=== PATIENT | male | born 1990 | race Caucasian/White ===

== ENCOUNTER 2016-07-28 16:56 | Emergency (ER) | payer SELFPAY ==
[2016-07-28 17:32] VITALS: BP 130/73
--- NOTE | 2016-07-28 17:59 | ER Document Report ---
ED Medical Screen (RME) - General Stated Complaint: LEFT THUMB LACERATION Notes: cut his finger on a razor blade today not sure of his last tetanus no sign of bleeding, thru epidermis I have greeted and performed a rapid initial assessment of this patient. A comprehensive ED assessment and evaluation of the patient, analysis of test results and completion of the medical decision making process will be conducted by additional ED providers. TRAVEL OUTSIDE OF THE [place] IN LAST 30 DAYS: No - Related Data Allergies/Adverse Reactions: No Known Allergies Allergy (Verified 07/28/16 17:57) Past Medical History Renal/ Medical History: Reports: Hx Kidney Stones Musculoskeltal Medical History: Reports Hx Musculoskeletal Deformity, Reports Hx Musculoskeletal Trauma Psychiatric Medical History: Reports: Hx Depression Past Surgical History: Reports: Hx Adenoidectomy - Immunizations Hx Diphtheria, Pertussis, Tetanus Vaccination: Yes - within 2 years Physical Exam - Vital signs Vitals: Temp Pulse Resp BP Pulse Ox 98.5 F 78 18 130/73 H 98 07/28/16 17:31 07/28/16 17:31 07/28/16 17:31 07/28/16 17:31 07/28/16 17:31 Course - Vital Signs Vital signs: Temp Pulse Resp BP Pulse Ox 98.5 F 78 18 130/73 H 98 07/28/16 17:31 07/28/16 17:31 07/28/16 17:31 07/28/16 17:31 07/28/16 17:31
[2016-07-28] MEDS ORDERED: DIPH/PERTUSS(ACELL)/TETANUS VAC/PF 0.5 ML SYR (>=10YO) IM ONE (18:00)
== END 2016-07-28 20:00 | disposition left against medical advice (07) ==
LOC: ER 16:56
DX: S61.012A Laceration without foreign body of left thumb without damage to nail, initial encounter (principal); X58.XXXA Exposure to other specified factors, initial encounter; Z53.20 Procedure and treatment not carried out because of patient's decision for unspecified reasons
CPT/HCPCS: 99281

== ENCOUNTER 2016-10-29 18:39 | Emergency (ER) | payer OTHER ==
[2016-10-29] MEDS ORDERED: PREDNISONE 20 MG TABLET PO ONE (20:25)
[2016-10-29] MEDS ORDERED: HYDROCODONE/ACETAMINOPHEN 5-325 MG 6 TAB/DSPK PO PRN (20:25)
--- NOTE | 2016-10-29 20:30 | ER Document Report ---
HPI - HPI Patient complains to provider of: lumbar back pain, right thigh pain Pain Level: 3 Context: Patient is a 26-year-old male that comes emergency department for chief complaint of pain in the bilateral lower part of his back with soreness, States his pain in his right thigh area and down his leg towards his knee. 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 He denies any focal numbness or weakness, bowel or bladder changes, denies history of IV drug abuse, denies fever. He reports history of similar symptoms. - DERM Skin Color: Normal Past Medical History - General Information source: Patient - Social History Smoking Status: Never Smoker Frequency of alcohol use: None Drug Abuse: None Lives with: Family Family History: Reviewed & Not Pertinent, Arthritis, Malignancy Renal/ Medical History: Reports: Hx Kidney Stones. Denies: Hx Peritoneal Dialysis Musculoskeltal Medical History: Reports Hx Musculoskeletal Deformity, Reports Hx Musculoskeletal Trauma Psychiatric Medical History: Reports: Hx Depression Past Surgical History: Reports: Hx Adenoidectomy - Immunizations Hx Diphtheria, Pertussis, Tetanus Vaccination: Yes - within 2 years Vertical Provider Document - CONSTITUTIONAL General Appearance: WD/WN, Thin - INFECTION CONTROL TRAVEL OUTSIDE OF THE [place] IN LAST 30 DAYS: No - HEENT HEENT: Atraumatic, Normocephalic - NECK Neck: Normal Inspection - RESPIRATORY Respiratory: Breath Sounds Normal, No Respiratory Distress O2 Sat by Pulse Oximetry: 99 - CARDIOVASCULAR Cardiovascular: Regular Rate, Regular Rhythm - GI/ABDOMEN Gastrointestinal: Abdomen Soft, Abdomen Non-Tender - BACK Back: negative: Normal Inspection - Tender in the bilateral lower paralumbar musculature, no midline tenderness, no saddle anesthesia, normal upper and lower extremity range of motion, normal distal neurovascular exam - NEURO Level of Consciousness: Awake, Alert, Appropriate Motor/Sensory: No Motor Deficit, No Sensory Deficit Course - Re-evaluation Re-evalutation: Patient with tenderness in the bilateral lower lumbar musculature, no midline tenderness, no concerning deficits, negative straight leg raise, also has some anterior thigh tenderness but normal range of motion. Treating symptomatically for lower back pain, 5 pain, muscular symptoms. Discussed follow-up and return precautions. Patient states understanding and agreement. - Vital Signs Vital signs: Temp Pulse Resp BP Pulse Ox 98.1 F 76 18 122/71 99 10/29/16 18:43 10/29/16 18:43 10/29/16 18:43 10/29/16 18:43 10/29/16 18:43 Discharge - Discharge Clinical Impression: Right thigh pain Lower back pain Qualifiers: Chronicity: acute Back pain laterality: bilateral Sciatica presence: without sciatica Qualified Code(s): M54.5 - Low back pain Condition: Stable Disposition: HOME, SELF-CARE Additional Instructions: Examination is consistent with muscular strain of the lower back and thigh muscles. Take the prednisone and muscle relaxer as prescribed, take pptx-[id number] pain medications such as Tylenol as well, apply heat to the areas, and rest. Follow-up with primary care. Return to the emergency department for any concerning or worsening symptoms including numbness, loss of bowel or bladder control, severe pain, fever, etc. Prescriptions: Methocarbamol [Robaxin 750 mg Tablet] 750 mg PO Q6 #20 tablet Prednisone [Deltasone 10 mg Tablet] 10 mg PO ASDIR PRN #21 tablet PRN Reason: Forms: Return to Work
[2016-10-29 22:05] VITALS: BP 138/87
== END 2016-10-29 20:45 | disposition home or self-care (01) ==
LOC: ER 18:39
DX: M54.5 Low back pain (principal); M79.651 Pain in right thigh
CPT/HCPCS: 99283; J7512

== ENCOUNTER 2017-04-29 10:13 | Emergency (ER) | payer OTHER ==
[2017-04-29 10:19] VITALS: BP 127/80
[2017-04-29] MEDS ORDERED: KETOROLAC TROMETHAMINE INJ/PF 30 MG/1 ML SDV IM ONE (10:38)
[2017-04-29] MEDS ORDERED: LIDOCAINE 5% (700 MG) TRANSDERMAL ADH..PATCH TP ONE (10:38)
[2017-04-29] MEDS ORDERED: DEXAMETHASONE SOD PHOS INJ 10 MG/1 ML VIAL IM ONE (10:38)
--- NOTE | 2017-04-29 10:44 | ER Document Report ---
HPI - HPI Pain Level: 3 Notes: Patient is a 26-year-old male who presents the ED with acute on chronic back pain status post injury while at work. Patient states that he was lifting up a car door by himself and used improper technique. Patient states that he felt pain in his left lower back. Patient states that the pain does not radiate and is described as a throbbing and tight pain. Patient denies any recent procedures or surgeries to his lower back. He denies any significant medical history. Denies any drug allergies. Denies any previous history of spinal abscess or recent bacterial infection. Patient is still able to ambulate without any difficulties, and plans to go back to work today. Denies any headache, fever, neck pain, URI, sore throat, chest pain, palpitations, syncope , cough, shortness of breath, wheeze, dyspnea, abdominal pain, nausea/vomiting/ diarrhea, urinary retention, dysuria, hematuria, loss of control of bowel or bladder, numbness/tingling, saddle anesthesia, muscle paralysis/weakness, or rash. Patient denies any IV drug use, but does admit to smoking cigarettes. Patient states that he is trying to quit. - ROS Notes: REVIEW OF SYSTEMS: CONSTITUTIONAL : Denies fever, chills, or sweats. Denies recent illness. EENT: Denies eye, ear, throat, or mouth pain or symptoms. Denies nasal or sinus congestion or discharge. Denies throat, tongue, or mouth swelling or difficulty swallowing. CARDIOVASCULAR: Denies chest pain. Denies palpitations or racing or irregular heart beat. Denies ankle edema. RESPIRATORY: Denies cough, cold, or chest congestion. Denies shortness of breath, difficulty breathing, or wheezing. GASTROINTESTINAL: Denies abdominal pain or distention. Denies nausea, vomiting , or diarrhea. Denies blood in vomitus, stools, or per rectum. Denies black, tarry stools. Denies constipation. GENITOURINARY: Denies difficulty urinating, painful urination, burning, frequency, blood in urine, or discharge. MUSCULOSKELETAL: see hpi SKIN: Denies rash, lesions or sores. NEUROLOGICAL: Denies confusion or altered mental status. Denies passing out or loss of consciousness. Denies dizziness or lightheadedness. Denies headache. Denies weakness or paralysis or loss of use of either side. Denies problems with gait or speech. Denies sensory loss, numbness, or tingling. ALL OTHER SYSTEMS REVIEWED AND NEGATIVE. Dictation was performed using [employer] voice recognition software - DERM Skin Color: Normal Past Medical History - Social History Smoking Status: Current Some Day Smoker Chew tobacco use (# tins/day): No Frequency of alcohol use: None Drug Abuse: None Family History: Reviewed & Not Pertinent, Arthritis, Malignancy Patient has suicidal ideation: No Patient has homicidal ideation: No Renal/ Medical History: Reports: Hx Kidney Stones. Denies: Hx Peritoneal Dialysis Musculoskeltal Medical History: Reports Hx Musculoskeletal Deformity, Reports Hx Musculoskeletal Trauma Psychiatric Medical History: Reports: Hx Depression Past Surgical History: Reports: Hx Adenoidectomy - Immunizations Hx Diphtheria, Pertussis, Tetanus Vaccination: Yes - within 2 years Vertical Provider Document - CONSTITUTIONAL Agree With Documented VS: Yes Notes: PHYSICAL EXAMINATION: GENERAL: Well-appearing, well-nourished and in no acute distress. LUNGS: Breath sounds clear to auscultation bilaterally and equal. No wheezes rales or rhonchi. HEART: Regular rate and rhythm without murmurs, rubs, gallops. ABDOMEN: Soft, nontender, nondistended abdomen. No guarding, no rebound. No masses appreciated. Normal bowel sounds present. No CVA tenderness bilaterally. No pulsatile mass. Musculoskeletal: LE's b/l: FROM to passive/active. Strength 5+/5. No deficits noted. No bony tenderness of extremities. Back: FROM to passive/active. Strength 5+/5. No vertebral point tenderness, stepoffs, or deformities. No other bony tenderness or ecchymosis. SLR negative b/l. + mild tenderness to the left L-paraspinal mm with mild spasming. Extremities: No cyanosis, clubbing, or edema b/l. Peripheral pulses 2+. Capillary refill less than 2 seconds. NEUROLOGICAL: Normal speech, ataxic gait. Normal sensory, motor exams. Reflexes 2+ b/l. PSYCH: Normal mood, normal affect. SKIN: Warm, Dry, normal turgor, no rashes or lesions noted. - INFECTION CONTROL TRAVEL OUTSIDE OF THE [place] IN LAST 30 DAYS: No - RESPIRATORY O2 Sat by Pulse Oximetry: 100 Course - Re-evaluation Re-evalutation: 04/29/17 10:42 Patient is an afebrile, well-hydrated, 26-year-old male who presents the ED with a left lower back strain. Vitals are stable. PE is otherwise unremarkable for any focal neurological deficits. No imaging warranted today based on H&P. Low suspicion for any meningitis, fracture, expanding/ruptured AAA, cauda equina syndrome, epidural mass lesion/abscess, herniated disc causing severe spinal stenosis, or other systemic infection at this time. Patient is aware that his condition can change from initial presentation and that he needs monitor symptoms closely for any acute changes. Decadron 10 mg given IM today along with Toradol 30 mg IM. Lidoderm patch applied today. I will send him home with a prescription for baclofen. Patient declined p.o. NSAIDs, and desired narcotics. I explained that narcotics are not warranted for his condition at this time and that he cannot work on the narcotics anyway. Recheck with your PCM in 3-5 days. Consider consult with orthopedics and physical therapy. Return to the ED with any worsening/concerning symptoms otherwise as reviewed in discharge. Patient is in agreement. - Vital Signs Vital signs: Temp Pulse Resp BP Pulse Ox 97.8 F 92 20 127/80 H 100 04/29/17 10:18 04/29/17 10:18 04/29/17 10:18 04/29/17 10:18 04/29/17 10:18 Discharge - Discharge Clinical Impression: Low back strain Qualifiers: Encounter type: initial encounter Qualified Code(s): S39.012A - Strain of muscle, fascia and tendon of lower back, initial encounter Condition: Stable Disposition: HOME, SELF-CARE Instructions: Ice Packs ([facility]), Low Back Pain ([facility]), Muscle Strain ([facility]), Warm Packs ([facility]), Stretching Exercises for the Back ([facility]) Additional Instructions: Rest, Ice Tylenol/ibuprofen as needed Light stretches daily Strength exercises as able Moist heat and massage may help F/u with your PCP in 3-5 days for a recheck Consider consult(s) with Orthopedics/physical therapy for ongoing/worsening symptoms Return to the ED with any worsening symptoms and/or development of fever, headache, chest pain, palpitations, syncope, shortness of breath, trouble breathing, abdominal pain, n/v/d, blood in stool/urine, loss of control of bowel /bladder, urinary retention, muscle weakness/paralysis, saddle anesthesia, numbness/tingling, or other worsening symptoms that are concerning to you. Prescriptions: Baclofen [Baclofen 10 mg Tablet] 5 mg PO BID PRN #10 tablet PRN Reason: Forms: Elevated Blood Pressure, Smoking Cessation Education, Return to Work Referrals: [facility] [Provider Group] - Follow up as needed
== END 2017-04-29 11:24 | disposition home or self-care (01) ==
LOC: ER 10:13
DX: S39.012A Strain of muscle, fascia and tendon of lower back, initial encounter (principal); X50.0XXA Overexertion from strenuous movement or load, initial encounter; Y99.0 Civilian activity done for income or pay; G89.29 Other chronic pain; F17.200 Nicotine dependence, unspecified, uncomplicated
CPT/HCPCS: 99283; 96372; J1885; J1100

== ENCOUNTER 2017-11-18 13:37 | Emergency (ER) | payer BC, OTHER ==
[2017-11-18] MEDS ORDERED: KETOROLAC TROMETHAMINE INJ/PF 30 MG/1 ML SDV IV ONE (14:17)
[2017-11-18] MEDS ORDERED: METOCLOPRAMIDE HCL INJ/PF 10 MG/2 ML SDV IV ONE (14:17)
--- NOTE | 2017-11-18 14:17 | ER Document Report ---
ED Medical Screen (RME) - General Chief Complaint: Flank Pain Stated Complaint: VOMITING, SIDE PAIN Time Seen by Provider: 11/18/17 14:13 Mode of Arrival: Ambulatory Information source: Patient Notes: 27-year-old male history one previous kidney stone 4 years ago presents with complaints of left flank pain nausea vomiting that came on all of a sudden today I have greeted and performed a rapid initial assessment of this patient. A comprehensive ED assessment and evaluation of the patient, analysis of test results and completion of the medical decision making process will be conducted by additional ED providers. PHYSICAL EXAMINATION: GENERAL: Well-appearing, well-nourished and in moderate distress. HEAD: Atraumatic, normocephalic. EYES: Pupils equal round extraocular movements intact, conjunctiva are normal. ENT: Nares patent NECK: Normal range of motion LUNGS: No respiratory distress Musculoskeletal: Normal range of motion NEUROLOGICAL: Normal speech, normal gait. PSYCH: Normal mood, normal affect. SKIN: Warm, Dry, normal turgor, no rashes or lesions noted. TRAVEL OUTSIDE OF THE [place] IN LAST 30 DAYS: No - Related Data Allergies/Adverse Reactions: No Known Allergies Allergy (Verified 04/29/17 10:18) Past Medical History - Social History Chew tobacco use (# tins/day): No Frequency of alcohol use: None Drug Abuse: None Renal/ Medical History: Reports: Hx Kidney Stones. Denies: Hx Peritoneal Dialysis Musculoskeltal Medical History: Reports Hx Musculoskeletal Deformity, Reports Hx Musculoskeletal Trauma Psychiatric Medical History: Reports: Hx Depression Past Surgical History: Reports: Hx Adenoidectomy - Immunizations Hx Diphtheria, Pertussis, Tetanus Vaccination: Yes - within 2 years Physical Exam - Vital signs Vitals: Pulse Resp BP Pulse Ox 93 16 140/80 H 100 11/18/17 13:59 11/18/17 13:59 11/18/17 13:59 11/18/17 13:59 Course - Vital Signs Vital signs: Temp Pulse Resp BP Pulse Ox 93 16 140/80 H 100 11/18/17 13:59 11/18/17 13:59 11/18/17 13:59 11/18/17 13:59 Doctor's Discharge - Discharge Referrals: NEFTALI PACHECO MD [Primary Care Provider] - Follow up as needed
[2017-11-18] MEDS ORDERED: ONDANSETRON 4 MG TAB.RAPDIS PO ONE (14:50)
[2017-11-18] MEDS ORDERED: KETOROLAC TROMETHAMINE 60 MG/2 ML SDV IM ONE ×2 (14:50→15:34)
[2017-11-18 15:35] LABS: APPEARANCE,URINE SLIGHTLY-CLOUDY; BILIRUBIN,URINE NEGATIVE (NEGATIVE); COLOR,URINE YELLOW; GLUCOSE, URINE NEGATIVE (NEGATIVE); KETONES,URINE TRACE mg/dL (NEGATIVE); LEUKOCYTE ESTERASE,URINE NEGATIVE (NEGATIVE); NITRITE,URINE NEGATIVE (NEGATIVE); PROTEIN,URINE 30 mg/dL (NEGATIVE); URINE SPECIFIC GRAVITY 1.031
--- NOTE | 2017-11-18 15:37 | ER Document Report ---
ED General - General Chief Complaint: Flank Pain Stated Complaint: VOMITING, SIDE PAIN Time Seen by Provider: 11/18/17 14:13 Mode of Arrival: Ambulatory Information source: Patient, [facility] Records Notes: 27-year-old male with previous renal stones presents with complaint of left flank and left lower quadrant pain that started 1 day prior to arrival. Patient states left flank pain initially was aching, dull but worsened this morning. Patient's now experiencing left lower quadrant fullness. Patient has had associated nausea, vomiting. He denies any blood in his emesis. He denies fever, chills, chest pain, shortness of breath. He denies any recent illnesses. The last time the patient had a kidney stone was 4 years ago. He was able to pass the stone by himself at that time. Patient denies any injury to the back. TRAVEL OUTSIDE OF THE [place] IN LAST 30 DAYS: No - HPI Onset: Yesterday Onset/Duration: Gradual, Persistent, Worse Quality of pain: Dull, Fullness Severity: Moderate Associated symptoms: Nausea, Vomiting. denies: Chest pain, Fever, Shortness of breath Exacerbated by: Walking Relieved by: Denies Similar symptoms previously: Yes Recently seen / treated by doctor: No - Related Data Allergies/Adverse Reactions: No Known Allergies Allergy (Verified 04/29/17 10:18) Past Medical History - General Information source: Patient - Social History Smoking Status: Current Every Day Smoker Chew tobacco use (# tins/day): No Frequency of alcohol use: None Drug Abuse: None Lives with: Alone Family History: Reviewed & Not Pertinent, Arthritis, Malignancy Patient has suicidal ideation: No Patient has homicidal ideation: No Renal/ Medical History: Reports: Hx Kidney Stones. Denies: Hx Peritoneal Dialysis Musculoskeltal Medical History: Reports Hx Musculoskeletal Deformity, Reports Hx Musculoskeletal Trauma Psychiatric Medical History: Reports: Hx Depression Past Surgical History: Reports: Hx Adenoidectomy - Immunizations Hx Diphtheria, Pertussis, Tetanus Vaccination: Yes - within 2 years Review of Systems - Review of Systems Notes: REVIEW OF SYSTEMS: CONSTITUTIONAL : Denies fever, chills, or sweats. Denies recent illness. Denies weight loss, recent hospitalizations. EENT: Denies visula changes, eye pain. Denies nasal or sinus congestion or discharge. Denies sore throat, oral lesions, difficulty swallowing. CARDIOVASCULAR: Denies chest pain. Denies palpitations or racing or irregular heart beat. Denies lower extremity edema. RESPIRATORY: Denies cough, cold, or chest congestion. Denies shortness of breath, difficulty breathing, or wheezing. GASTROINTESTINAL: Denies abdominal distention. Denies diarrhea. Denies blood in vomitus, stools, or per rectum. Denies black, tarry stools. Denies constipation. GENITOURINARY: Denies difficulty urinating, painful urination, burning, frequency, blood in urine, or vaginal discharge. MUSCULOSKELETAL: Denies back or neck pain or stiffness. Denies joint pain or swelling. SKIN: Denies rash, lesions or sores. HEMATOLOGIC : Denies easy bruising or bleeding. LYMPHATIC: Denies swollen, enlarged glands. NEUROLOGICAL: Denies confusion or altered mental status. Denies passing out or loss of consciousness. Denies dizziness or lightheadedness. Denies headache. Denies weakness or paralysis or loss of use of either side. Denies problems with gait or speech. Denies sensory loss, numbness, or tingling. Denies seizures. PSYCHIATRIC: Denies anxiety or stress. Denies depression, suicidal ideation, or homicidal ideation. Physical Exam - Vital signs Vitals: Pulse Resp BP Pulse Ox 93 16 140/80 H 100 11/18/17 13:59 11/18/17 13:59 11/18/17 13:59 11/18/17 13:59 - Notes Notes: PHYSICAL EXAMINATION: GENERAL: Well-appearing, well-nourished and in no acute distress. HEAD: Atraumatic, normocephalic. EYES: Pupils equal round and reactive to light, extraocular movements intact, sclera anicteric, conjunctiva are normal. ENT: Nares patent, oropharynx clear without exudates. Moist mucous membranes. NECK: Normal range of motion, supple without lymphadenopathy LUNGS: Breath sounds clear to auscultation bilaterally and equal. No wheezes rales or rhonchi. HEART: Regular rate and rhythm without murmurs ABDOMEN: Soft, nontender, nondistended abdomen. No guarding, no rebound. No masses appreciated. Left CVA tenderness Musculoskeletal: Normal range of motion, no pitting or edema. No cyanosis. NEUROLOGICAL: Cranial nerves grossly intact. Normal speech, normal gait. Normal sensory, motor exams PSYCH: Normal mood, normal affect. SKIN: Warm, Dry, normal turgor, no rashes or lesions noted. Course - Re-evaluation Re-evalutation: Laboratory 11/18/17 11/18/17 11/18/17 14:25 15:20 15:20 WBC 13.5 H RBC 5.15 Hgb 14.7 Hct 44.1 MCV 86 MCH 28.6 MCHC 33.4 RDW 12.9 Plt Count 278 Seg Neutrophils % 81.8 H Lymphocytes % 10.2 L Monocytes % 4.4 Eosinophils % 3.0 Basophils % 0.6 Absolute Neutrophils 11.0 H Absolute Lymphocytes 1.4 Absolute Monocytes 0.6 Absolute Eosinophils 0.4 Absolute Basophils 0.1 Sodium 146.7 H Potassium 4.0 Chloride 103 Carbon Dioxide 26 Anion Gap 18 BUN 20 Creatinine 1.08 Est GFR ( Amer) > 60 Est GFR (Non-Af Amer) > 60 Glucose 128 H Calcium 10.2 Total Bilirubin 0.6 Direct Bilirubin 0.3 Neonat Total Bilirubin Not Reportable Neonat Direct Bilirubin Not Reportable Neonat Indirect Bili Not Reportable AST 27 ALT 26 Alkaline Phosphatase 98 Total Protein 8.9 H Albumin 5.0 Urine Color YELLOW Urine Appearance SLIGHTLY-CLOUDY Urine pH 5.0 Ur Specific Ayden 1.031 Urine Protein 30 H Urine Glucose (UA) NEGATIVE Urine Ketones TRACE H Urine Blood LARGE H Urine Nitrite NEGATIVE Urine Bilirubin NEGATIVE Urine Urobilinogen 2.0 H Ur Leukocyte Esterase NEGATIVE Urine WBC (Auto) 4 Urine RBC (Auto) 80 U Hyaline Cast (Auto) 3 Urine Mucus (Auto) MOD Urine Ascorbic Acid NEGATIVE Limited or Localized CT 11/18/17 14:17 IMPRESSION: BILATERAL NEPHROLITHIASIS WITH MILD LEFT HYDRONEPHROSIS SECONDARY TO 4 MM CALCULUS WITHIN THE DISTAL URETER. 11/18/17 22:14 27-year-old male with previous renal stones presents with complaint of left flank and left lower quadrant pain that started 1 day prior to arrival. Patient states left flank pain initially was aching, dull but worsened this morning. Patient's now experiencing left lower quadrant fullness. Patient has had associated nausea, vomiting. Patient was seen by myself upon arrival. Vital signs were reviewed. Patient is afebrile, mildly hypertensive and not hypoxic. Patient does not appear toxic or dehydrated but does appear to be in pain. Previous medical records and nursing notes reviewed. Significant findings include CT with a 4 mm calculus within the distal ureter. Urinalysis significant for large amount of blood and 80 RBCs but not consistent with infection. CBC is without leukocytosis or anemia. CMP is without electrolyte abnormality. Patient received IV fluids, Toradol, Zofran, Flomax during his ED course. On reevaluation patient is resting more comfortably. He will be discharged home with prescription for Flomax, Motrin, Alliance. Patient was provided a urine strainer and a note for work. Patient provided the opportunity to ask questions, and express concerns. Discharge instructions discussed. Patient is agreeable with discharge home. Return indications explained and discussed with the patient who displays understanding. Patient encouraged to return to the emergency department immediately with any concerns. - Vital Signs Vital signs: Temp Pulse Resp BP Pulse Ox 98.3 F 44 L 18 118/61 100 11/18/17 17:20 11/18/17 17:20 11/18/17 17:20 11/18/17 17:20 11/18/17 17:20 - Laboratory Result Diagrams: 11/18/17 15:20 11/18/17 15:20 Laboratory results interpreted by me: 11/18/17 11/18/17 11/18/17 14:25 15:20 15:20 WBC 13.5 H Seg Neutrophils % 81.8 H Lymphocytes % 10.2 L Absolute Neutrophils 11.0 H Sodium 146.7 H Glucose 128 H Total Protein 8.9 H Urine Protein 30 H Urine Ketones TRACE H Urine Blood LARGE H Urine Urobilinogen 2.0 H - Diagnostic Test Radiology reviewed: Image reviewed, Reports reviewed Discharge - Discharge Clinical Impression: Urolithiasis Qualifiers: Urinary calculus location: lower urinary tract Qualified Code(s): N21.9 - Calculus of lower urinary tract, unspecified Hematuria Qualifiers: Hematuria type: gross Qualified Code(s): R31.0 - Gross hematuria Disposition: HOME, SELF-CARE Instructions: Kidney Stone ([facility]) Prescriptions: Hydrocodone/Acetaminophen [Alliance 5-325 mg Tablet] 1 tab PO Q6H #8 tablet Ibuprofen [Motrin 600 Mg Tablet] 600 mg PO TID #15 tablet Ondansetron [Zofran Odt 4 mg Tablet] 1 - 2 tab PO Q4H PRN #15 tab.rapdis PRN Reason: For Nausea/Vomiting Tamsulosin HCl [Flomax 0.4 mg Cap.sr] 0.4 mg PO DAILY #7 cap.sr.24h Forms: Return to Work Referrals: NEFTALI PACHECO MD [Primary Care Provider] - Follow up in 3-5 days
[2017-11-18 15:43] LABS: ABSOLUTE BASOPHILS # (AUTO) 0.1 10^3/uL (0.0-0.2); ABSOLUTE EOSINOPHILS # (AUTO) 0.4 10^3/uL (0.0-0.6); ABSOLUTE LYMPHOCYTES (AUTO) 1.4 10^3/uL (0.5-4.7); ABSOLUTE MONOCYTES (AUTO) 0.6 10^3/uL (0.1-1.4); BASOPHILS % (AUTO) 0.6 % (0-2); HEMATOCRIT 44.1 % (37.9-51.0); HEMOGLOBIN 14.7 g/dL (13.5-17.0); LYMPHOCYTES % (AUTO) 10.2 % (13-45); MEAN CORPUSCULAR HEMOGLOBIN 28.6 pg (27.0-33.4); MEAN CORPUSCULAR HGB CONC 33.4 g/dL (32.0-36.0); MEAN CORPUSCULAR VOLUME 86 fl (80-97); MONOCYTES % (AUTO) 4.4 % (3-13); PLATELET COUNT 278 10^3/uL (150-450); RED BLOOD COUNT 5.15 10^6/uL (4.35-5.55); RED CELL DISTRIBUTION WIDTH 12.9 % (11.5-14.0); SEGMENTED NEUTROPHILS % (AUTO) 81.8 % (42-78); TOTAL CELLS COUNTED % (AUTO) 100 %; WHITE BLOOD COUNT 13.5 10^3/uL (4.0-10.5)
--- NOTE | 2017-11-18 15:55 | RADIOLOGY REPORT (SQ) ---
EXAM DESCRIPTION: CT LTD RENAL STONE PROTOCOL ON COMPLETED DATE/TIME: 11/18/2017 3:45 pm REASON FOR STUDY: left flank pain hx stone COMPARISON: 09/22/2017 TECHNIQUE: CT scan of the abdomen and pelvis performed without intravenous or oral contrast. Images reviewed with lung, soft tissue, and bone windows. Reconstructed coronal and sagittal MPR images revi ewed. All images stored on PACS. All CT scanners at this facility use dose modulation, iterative reconstruction, and/or weight based d osing when appropriate to reduce radiation dose to as low as reasonably achievable (ALARA). [facility]: Dose Right [facility]: CareDose [facility]: Dose Right [facility]: Teradose 4D [facility]: Smart Affresol RADIATION DOSE: CT Rad equipment meets quality standard of care and radiation dose reduction techniq ues were employed. CTDIvol: 5.0 mGy. DLP: 258 mGy-cm.mGy. LIMITATIONS: None. FINDINGS: LOWER CHEST: No significant findings. No nodules or infiltrates. NON-CONTRASTED LIVER, SPLEEN, ADRENALS: Evaluation limited by lack of IV contrast. No identified sign ificant masses. PANCREAS: No masses. No peripancreatic inflammatory changes. GALLBLADDER: No identified stones by CT criteria. No inflammatory changes to suggest cholecystitis. RIGHT KIDNEY AND URETER: No suspicious masses. Assessment limited by lack of IV contrast. Punctate nonobstructing calculus lower pole. No hydronephrosis or hydroureter. LEFT KIDNEY AND URETER: No suspicious masses. Assessment limited by lack of IV contrast. Mild hydro nephrosis secondary to 4 mm calculus within the distal ureter. Additional nonobstructing calculus lo cated within the upper pole left kidney. AORTA AND RETROPERITONEUM: No aneurysm. No retroperitoneal masses or adenopathy. BOWEL AND PERITONEAL CAVITY: No obvious masses or inflammatory changes. No free fluid. APPENDIX: Normal. PELVIS, BLADDER, AND ABDOMINAL WALL:No abnormal masses. No free fluid. Bladder normal. BONES: No significant findings. OTHER: No other significant finding. IMPRESSION: BILATERAL NEPHROLITHIASIS WITH MILD LEFT HYDRONEPHROSIS SECONDARY TO 4 MM CALCULUS WITHI N THE DISTAL URETER. COMMENT: Quality ID # [id number]: Final reports with documentation of one or more dose reduction techniques (e.g., Automated exposure control, adjustment of the mA and/or kV according to patient size, use of iterative reconstruction technique) TECHNICAL DOCUMENTATION: JOB ID: [id number] [employer]- All Rights Reserved Reading location - IP/workstation name: [email or web address]
[2017-11-18 16:03] LABS: ALANINE AMINOTRANSFERASE 26 U/L (21-72); ALKALINE PHOSPHATASE 98 U/L (38-126); ANION GAP 18 (5-19); ASPARTATE AMINO TRANSFERASE 27 U/L (17-59); BILIRUBIN,DIRECT 0.3 mg/dL (0.0-0.4); BILIRUBIN,TOTAL 0.6 mg/dL (0.2-1.3); BLOOD UREA NITROGEN 20 mg/dL (7-20); CALCIUM 10.2 mg/dL (8.4-10.2); CARBON DIOXIDE 26 mmol/L (22-30); CHLORIDE 103 mmol/L (98-107); GLUCOSE 128 mg/dL (75-110); SODIUM 146.7 mmol/L (137-145); TOTAL PROTEIN 8.9 g/dL (6.3-8.2)
[2017-11-18] MEDS ORDERED: TAMSULOSIN HCL 0.4 MG CAP.SR.24H PO ONE (16:48)
[2017-11-18] MEDS ORDERED: MORPHINE SULFATE 10 MG/ML INJ IV ONE (17:06)
[2017-11-18 17:24] VITALS: BP 118/61
== END 2017-11-18 17:26 | disposition home or self-care (01) ==
LOC: ER 13:37
DX: N21.9 Calculus of lower urinary tract, unspecified (principal); R31.0 Gross hematuria; R10.9 Unspecified abdominal pain; R11.2 Nausea with vomiting, unspecified; F17.200 Nicotine dependence, unspecified, uncomplicated; Z87.442 Personal history of urinary calculi
CPT/HCPCS: 99284; 96372; 96374; 96375; 36415; 85025; 80053; 81001; 76380; J1885; J2765; J2270; S0119

== ENCOUNTER 2018-01-14 06:10 | Emergency (ER) | payer BC ==
--- NOTE | 2018-01-14 06:47 | ER Document Report ---
ED Extremity Problem, Upper - General Chief Complaint: Arm Problem Stated Complaint: LEFT ARM SWELLING Time Seen by Provider: 01/14/18 06:34 TRAVEL OUTSIDE OF THE [place] IN LAST 30 DAYS: No - HPI Notes: 27-year-old male with history of IV drug abuse presents to the ER complaining of left arm swelling that he noticed yesterday. Patient stated he last injected heroin 2 weeks ago. He states he has had no recent injections since however he has noticed his arm swelling starting yesterday. He denies fever chills. Describes aching pressure type pain which he rates as moderate in his left arm. Worse with movement. Denies any fingertip numbness tingling or weakness. Denies any chest pain denies shortness of breath. States she has not had this before. Denies any sore throat cough. Has no history DVT or PE. Denies any recent travel night sweats hemoptysis or gland swelling. - Related Data Allergies/Adverse Reactions: No Known Allergies Allergy (Verified 04/29/17 10:18) Past Medical History - Social History Smoking Status: Current Every Day Smoker Family History: Reviewed & Not Pertinent, Arthritis, Malignancy Renal/ Medical History: Reports: Hx Kidney Stones. Denies: Hx Peritoneal Dialysis Musculoskeletal Medical History: Reports Hx Musculoskeletal Deformity, Reports Hx Musculoskeletal Trauma Psychiatric Medical History: Reports: Hx Depression Past Surgical History: Reports: Hx Adenoidectomy - Immunizations Hx Diphtheria, Pertussis, Tetanus Vaccination: Yes - within 2 years Review of Systems - Review of Systems Constitutional: denies: Chills, Fever, Weight loss EENT: denies: Nose congestion, Nose discharge, Sinus pressure, Sinus discharge, Throat pain, Throat swelling Cardiovascular: denies: Chest pain Respiratory: denies: Cough, Short of breath Gastrointestinal: denies: Abdominal pain, Nausea, Vomiting Genitourinary: denies: Dysuria Musculoskeletal: Other - Arm Swelling -: Yes All other systems reviewed and negative Physical Exam - Vital signs Vitals: Temp Pulse Resp BP Pulse Ox 97.3 F 91 18 130/71 H 100 01/14/18 06:17 01/14/18 06:17 01/14/18 06:17 01/14/18 06:17 01/14/18 06:17 - Notes Notes: GENERAL_APPEARANCE: well_nourished, alert, cooperative appears uncomfortable VITALS: reviewed, see vital signs table. HEAD: no_swelling\tenderness on the head. EYES: PERRL, EOMI, conjunctiva_clear. NOSE: no_nasal_discharge. MOUTH: (-)decreased moisture. NECK: supple, no_neck_tenderness, (-)thyromegaly. BACK: no_back_tenderness. CHEST_WALL: no_chest_tenderness. LUNGS: no_wheezing, no_rales, no_rhonchi, (-)accessory muscle use, good air exchange bilateral. HEART: normal_rate, normal_rhythm, normal_S1, normal_S2, (-)S3, (-)S4, no_ murmur, no_rub. ABDOMEN: soft, no_abd_tenderness, (-)guarding, (-)rebound, no_organomegaly, no_ abd_masses. EXTREMITIES: Left arm is swollen as compared to the right. There is no redness no heat no induration of fluctuance. There are scarring and track parra noted in the antecubital fossa. Her strong radial and ulnar pulses brisk cap refill nailbeds on the left. No crepitus felt on palpation of the entirety of the arm. SKIN: warm, dry, good_color, no_rash. MENTAL_STATUS: speech_clear, oriented_X_3, normal_affect, responds_ appropriately to questions. Course - Re-evaluation Re-evalutation: 01/14/18 06:46 27-year-old male presents with unilateral swelling upper extremity. The patient has some diffusely swollen portion of the left arm will get a Doppler to rule out DVT check some blood work and inflammatory markers certainly infection or abscess is a consideration. 01/14/18 11:51 Initially there is no redness however later on in the visit the arm started becoming red. Patient has no fever at this time is not vomiting. He was given an IV dose of Zosyn. No DVT was noted on exam I did get a CT to see if this was a complex purulent myositis. There seems to be a focal pus collection on the bicep. I was able to incise and drain this without difficulty packing was placed. Patient states he is feeling well will place him on Bactrim and Augmentin. Have the patient follow-up in 2 days for packing removal. I did advise him give good instructions if he were to get a fever of 101 or above or begins vomiting and cannot keep down his occasions he should return to the ER - Vital Signs Vital signs: Temp Pulse Resp BP Pulse Ox 98.8 F 85 16 132/63 H 99 01/14/18 09:43 01/14/18 09:43 01/14/18 09:43 01/14/18 09:43 01/14/18 09:43 - Laboratory Result Diagrams: 01/14/18 06:55 01/14/18 06:55 Laboratory results interpreted by me: 01/14/18 01/14/18 06:55 06:55 Hgb 12.5 L Hct 36.7 L ESR 58 H C-Reactive Protein > 90.0 H Procedures - Incision and Drainage Left Arm Time completed: 11:45 - Iodoform packing placed Type: Simple Anesthetic type: 1% Lidocaine w/epi mL's of anesthetic: 5 Blade size: 11 I&D procedure: Chlorprep applied, Shurclens applied Incision Method: Incision made by scalpel Amount/type of drainage: 30 ml Discharge - Discharge Clinical Impression: Abscess Condition: Good Disposition: HOME, SELF-CARE Instructions: Abscess ([facility]), Post Incision and Drainage Additional Instructions: Remove packing in 2 days if you can on your own otherwise return to the ER for us to recheck it. You develop a fever of 101 or above or he began vomiting and cannot keep down the antibiotics return to the ER immediately Prescriptions: Amox Tr/Potassium Clavulanate [Augmentin 875-125 Tablet] 1 tab PO BID 10 Days tablet Ibuprofen [Motrin 600 Mg Tablet] 600 mg PO TID #15 tablet Sulfamethoxazole/Trimethoprim [Bactrim Ds Tablet] 1 each PO BID #20 tablet Referrals: NEFTALI PACHECO MD [Primary Care Provider] - Follow up as needed
[2018-01-14 07:12] LABS: ABSOLUTE BASOPHILS # (AUTO) 0.1 10^3/uL (0.0-0.2); ABSOLUTE EOSINOPHILS # (AUTO) 0.4 10^3/uL (0.0-0.6); ABSOLUTE LYMPHOCYTES (AUTO) 1.6 10^3/uL (0.5-4.7); ABSOLUTE MONOCYTES (AUTO) 0.9 10^3/uL (0.1-1.4); ABSOLUTE NEUT (AUTO) 7.2 10^3/uL (1.7-8.2); BASOPHILS % (AUTO) 0.7 % (0-2); EOSINOPHILS % (AUTO) 3.6 % (0-6); HEMATOCRIT 36.7 % (37.9-51.0); HEMOGLOBIN 12.5 g/dL (13.5-17.0); LYMPHOCYTES % (AUTO) 15.4 % (13-45); MEAN CORPUSCULAR HEMOGLOBIN 28.5 pg (27.0-33.4); MEAN CORPUSCULAR VOLUME 84 fl (80-97); MONOCYTES % (AUTO) 8.8 % (3-13); PLATELET COUNT 228 10^3/uL (150-450); RED BLOOD COUNT 4.38 10^6/uL (4.35-5.55); RED CELL DISTRIBUTION WIDTH 13.2 % (11.5-14.0); SEGMENTED NEUTROPHILS % (AUTO) 71.5 % (42-78); TOTAL CELLS COUNTED % (AUTO) 100 %; WHITE BLOOD COUNT 10.1 10^3/uL (4.0-10.5)
[2018-01-14 07:19] LABS: INTERNATIONAL RATION (INR) 1.05; PROTHROMBIN TIME 14.2 SEC (11.4-15.4)
[2018-01-14 07:39] LABS: ALANINE AMINOTRANSFERASE 26 U/L (21-72); ALBUMIN 4.2 g/dL (3.5-5.0); ALKALINE PHOSPHATASE 84 U/L (38-126); ANION GAP 14 (5-19); ASPARTATE AMINO TRANSFERASE 20 U/L (17-59); BILIRUBIN,DIRECT 0.4 mg/dL (0.0-0.4); BILIRUBIN,TOTAL 0.7 mg/dL (0.2-1.3); BLOOD UREA NITROGEN 14 mg/dL (7-20); CALCIUM 9.1 mg/dL (8.4-10.2); CARBON DIOXIDE 26 mmol/L (22-30); CHLORIDE 102 mmol/L (98-107); GLUCOSE 101 mg/dL (75-110); POTASSIUM 3.6 mmol/L (3.6-5.0); SODIUM 141.9 mmol/L (137-145)
[2018-01-14 08:13] LABS: ERYTHROCYTE SEDIMENTATION RATE 58 mm/hr (0-15)
[2018-01-14] MEDS ORDERED: PIPERACILLIN/TAZOBACTAM 3.375 GM VIAL IV ONE (10:38)
--- NOTE | 2018-01-14 10:48 | RADIOLOGY REPORT (SQ) ---
EXAM DESCRIPTION: CT RT UPPER EXTREMITY WITH COMPLETED DATE/TIME: 01/14/2018 10:29 am REASON FOR STUDY: Abscess COMPARISON: None. TECHNIQUE: Postcontrast axial imaging performed through the left elbow with reformatted coronal and sagittal imaging windowed for bone and soft tissues. Images saved to PACS. 3D IMAGING: Were 3D images as MIP, SSD, or volume rendering performed at the work station? No. All CT scanners at this facility use dose modulation, iterative reconstruction, and/or weight based d osing when appropriate to reduce radiation dose to as low as reasonably achievable (ALARA). [facility]: Dose Right [facility]: CareDose [facility]: Dose Right [facility]: Teradose 4D [facility]: Smart V[employer]ip CONTRAST TYPE AND DOSE: contrast/concentration: Isovue 370.00 mg/ml; Total Contrast Delivered: 50.0 ml; Total Saline Delivered: 60.0 ml RENAL FUNCTION: GFR > 60. LIMITATIONS: Positioning. RADIATION DOSE: CT Rad equipment meets quality standard of care and radiation dose reduction techniq ues were employed. CTDIvol: 2.6 mGy. DLP: 104 mGy-cm.mGy. FINDINGS: There is diffuse inflammatory change in the soft tissues of the upper arm which extends in ferior to the elbow. In the medial aspect of proximal humerus, there is a 2.7 cm organized focus of lower density without intralesional gas. No periosteal reaction. IMPRESSION: 2.5 cm abscess proximal humerus. TECHNICAL DOCUMENTATION: JOB ID: [id number] Quality ID # [id number]: Final reports with documentation of one or more dose reduction techniques (e.g., Au tomated exposure control, adjustment of the mA and/or kV according to patient size, use of iterative reconstruction technique) 2010 [employer]- All Rights Reserved Reading location - IP/workstation name: [email or web address]
[2018-01-14] MEDS ORDERED: LIDOCAINE 1%/EPINEPHRINE INJ 20 ML VIAL INJ ONE (11:08)
[2018-01-14 12:52] VITALS: BP 115/59
--- NOTE | 2018-01-14 16:38 | XCELERA REPORT ---
[address] [address] Upper Extremity Venous Evaluation Name: RUSLAN DAWN Age: 27 yrs Gender: Male : 1990 Patient Status: Emergency Patient Location: ER Study Date: 01/14/2018 08:54 AM Procedure: Unilateral duplex scan of the left upper extremity veins was performed, including responses to compression and other maneuvers. Reason For Study: L ARM Swelling Ordering Physician: JOHN DAY Performed By: Ellen Villegas Left Sided Venous Evaluation 2.5 x 2 x 1 cm , complex mass with central irregular shaped echolucent area. In the Biceps muscle. Non vascular. Normal vessel filling wall to wall, compression and augmentation as well as Colour flow down to the infrageniculate veins. Interpretation Summary No duplex evidence of DVT or obstruction in the left upper extremity. Possible coincident finding of a mass in the Biceps muscle. Further evaluation with other techniques may be indicated. : JOHN DAY > Kirby Núñez
[2018-01-15 11:21] LABS: C-REACTIVE PROTEIN 152.4 mg/L (<10.0)
== END 2018-01-14 12:51 | disposition home or self-care (01) ==
LOC: ER 06:10
DX: L02.419 Cutaneous abscess of limb, unspecified (principal); F11.10 Opioid abuse, uncomplicated; F17.200 Nicotine dependence, unspecified, uncomplicated
CPT/HCPCS: 10060; 99284; 36415; 87040; 87070; 87205; 82553; 85025; 85652; 85610; 86140; 87077; 80053; 87186; 93971 ×2; 73201; A6266; J3490; J2543

== ENCOUNTER 2018-09-11 21:05 | Emergency (ER) | payer OTHER ==
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
[2018-09-11 23:48] VITALS: BP 100/64
== END 2018-09-11 23:25 | disposition home or self-care (01) ==
LOC: ER 21:05
DX: M54.5 Low back pain (principal); V48.6XXA Car passenger injured in noncollision transport accident in traffic accident, initial encounter; F17.200 Nicotine dependence, unspecified, uncomplicated
CPT/HCPCS: 99283